=== PATIENT | female | born 1950 | race Caucasian/White ===

== ENCOUNTER 2024-09-04 13:01 | Inpatient (IN) | payer MEDICARE ==
[~2024-09-04] VITALS: Ht 162.6 cm; Wt 123.2 kg
[2024-09-04] VITALS (9 sets, daily range): BP systolic 126–155; BP diastolic 61–77; PULSE 82–98; RESP 17–30; TEMP 97.9–99.6; O2SAT 86–94
[~2024-09-04 13:01] MED LIST: FLOMAX0.4 MG PO; IRBESARTAN150 MG PO; LEVOTHYROXINE50 MCG PO; OXYBUTYNIN CHLOR5 MG PO; PHENAZOPYRIDIN100 MG PO; SIMVASTATIN40 MG PO
[2024-09-04 13:52] LABS: BASOPHILS % 0.2 % (0.0-1.0); EOSINOPHILS % 0.4 % (0.0-6.0); HEMATOCRIT 38.7 % (34.2-44.1); HEMOGLOBIN 11.8 g/dL (12.0-16.0); LYMPHOCYTES # (AUTO) 1.4 (1.0-3.2); LYMPHOCYTES % 29.7 % (18.0-39.1); MEAN CORPUSCULAR HEMOGLOBIN 30.3 pg (28-32); MEAN CORPUSCULAR HGB CONC 30.5 g/dL (31-35); MEAN CORPUSCULAR VOLUME 99.5 fL (81-99); MONOCYTES # (AUTO) 0.5 (0.2-0.8); MONOCYTES % 10.1 % (4.4-11.3); NEUTROPHILS # (AUTO) 2.8 (2.1-6.9); NEUTROPHILS % 59.4 % (38.7-80.0); PLATELET COUNT 189 x10e3/uL (140-360); RED BLOOD COUNT 3.89 x10e6/uL (3.6-5.1); WHITE BLOOD COUNT 4.74 x10e3/uL (4.8-10.8)
[2024-09-04] MEDS: ALBUTEROL/IPRATROPIUM 3 ML NEB NEB ONE (13:55)
[2024-09-04 14:21] LABS: INR 0.98; PROTHROMBIN TIME 13.6 seconds (11.9-14.5)
[2024-09-04] MEDS: METHYLPREDNISOLONE SOD SUCC 125 MG/2ML VIAL IV STA (14:21)
[2024-09-04 14:22] LABS: PARTIAL THROMBOPLASTIN TIME 37.7 seconds (23.8-35.5)
[2024-09-04] MEDS: SODIUM CHLORIDE 0.9% 500ML 500 ML IV ONE ×2 (14:22→16:50)
[2024-09-04 14:31] LABS: ALBUMIN 3.1 g/dL (3.5-5.0); ALBUMIN/GLOBULIN RATIO 0.9 (0.8-2.0); ANION GAP 14.3 mmol/L (8-16); BILIRUBIN,TOTAL 0.3 mg/dL (0.2-1.2); CALCIUM 9.1 mg/dL (8.4-10.2); CREATININE, SERUM 0.63 mg/dL (0.57-1.11); MAGNESIUM 1.9 MG/DL (1.3-2.1); POTASSIUM 4.3 mmol/L (3.5-5.1); TOTAL PROTEIN 6.6 g/dL (6.5-8.1)
[2024-09-04 14:37] LABS: TROPONIN I 0.003 ng/mL (0-0.300)
[2024-09-04] MEDS: Doxycycline IV 100 MG in SODIUM CHLORIDE 0.9% 100 ML IV SCH (16:24)
[2024-09-04 17:22] LABS: ABG PCO2 51 mmHg (35-45); ABG PH 7.39 (7.35-7.45)
[2024-09-04 17:23] LABS: ABG HCO3 31 mmol/L (22-26); ABG PO2 74 mmHg (80-105); ABG TCO2 32
[2024-09-04] MEDS ORDERED: IOPAMIDOL 370 MG/ML 100 ML INFUS..BTL INJ ONE (17:25)
[2024-09-04 18:15] LABS: INFLUENZA A AG NEGATIVE (NEGATIVE); INFLUENZA B AG NEGATIVE (NEGATIVE)
[2024-09-04 18:16] LABS: CORONAVIRUS COVID-19 AG NEGATIVE (NEGATIVE)
[2024-09-04] MEDS: ALBUTEROL/IPRATROPIUM 3 ML NEB NEB SCH (19:19)
[2024-09-04] MEDS: ACETAMINOPHEN 325 MG TAB PO PRN (19:29)
[2024-09-04 20:29] LABS: BILIRUBIN,URINE NEGATIVE (NEGATIVE); CLARITY,URINE SL CLOUDY (CLEAR); COLOR,URINE YELLOW (YELLOW); GLUCOSE, URINE NEGATIVE (NEGATIVE); KETONES,URINE 2+ (NEGATIVE); LEUKOCYTE ESTERASE ,URINE NEGATIVE (NEGATIVE); NITRITE,URINE NEGATIVE (NEGATIVE); PH,URINE 6 (5 - 7); PROTEIN,URINE DIPSTICK 1+ (NEGATIVE); URINE UROBILINOGEN 0.2 mg/dL (0.2 - 1)
[2024-09-04 20:42] LABS: BACTERIA,URINE RARE /HPF
[2024-09-04] MEDS ORDERED: SIMVASTATIN 40 MG TAB PO SCH (21:00)
[2024-09-04] MEDS ORDERED: ZOLPIDEM TARTRATE 5 MG TAB PO PRN (21:00)
[2024-09-04] MEDS ORDERED: COMBIGAN EYE DRO5 ML OP (21:08)
[2024-09-04] MEDS ORDERED: BREO ELLIPTA 11 EACH INH (21:08)
[2024-09-04] MEDS ORDERED: LASIX20 MG PO (21:08)
[2024-09-04] MEDS ORDERED: BRIMONIDINE/TIMOLOL (OPTH SOLN 5 ML DRPETTE OP SCH (23:53)
[2024-09-04] MEDS: BRIMONIDINE/TIMOLOL (OPTH SOLN 5 ML DRPETTE OP SCH (23:56)
[2024-09-05] VITALS (42 sets, daily range): BP systolic 112–172; BP diastolic 61–131; PULSE 54–107; RESP 16–27; TEMP 98–99.4; O2SAT 33–99
[2024-09-05] MEDS: LEVOTHYROXINE SODIUM 75 MCG TAB PO SCH (00:07)
[2024-09-05 01:23] LABS: TROPONIN I 0.002 ng/mL (0-0.300)
[2024-09-05] MEDS ORDERED: LEVOTHYROXINE SODIUM 75 MCG TAB PO SCH (06:00)
[2024-09-05 06:43] LABS: HEMOGLOBIN 11.5 g/dL (12.0-16.0); LYMPHOCYTES # (AUTO) 0.6 (1.0-3.2); LYMPHOCYTES % 17.9 % (18.0-39.1); MEAN CORPUSCULAR HEMOGLOBIN 30.6 pg (28-32); MEAN CORPUSCULAR HGB CONC 31.1 g/dL (31-35); MEAN CORPUSCULAR VOLUME 98.4 fL (81-99); MONOCYTES # (AUTO) 0.3 (0.2-0.8); MONOCYTES % 9.5 % (4.4-11.3); NEUTROPHILS # (AUTO) 2.4 (2.1-6.9); PLATELET COUNT 186 x10e3/uL (140-360); RED BLOOD COUNT 3.76 x10e6/uL (3.6-5.1); WHITE BLOOD COUNT 3.36 x10e3/uL (4.8-10.8)
[2024-09-05 07:06] LABS: ALBUMIN 3.1 g/dL (3.5-5.0); ALBUMIN/GLOBULIN RATIO 0.9 (0.8-2.0); ANION GAP 16.1 mmol/L (8-16); BILIRUBIN,TOTAL 0.2 mg/dL (0.2-1.2); CREATININE, SERUM 0.61 mg/dL (0.57-1.11); POTASSIUM 4.1 mmol/L (3.5-5.1); TOTAL PROTEIN 6.7 g/dL (6.5-8.1)
[2024-09-05 07:33] LABS: TROPONIN I 0.004 ng/mL (0-0.300)
[2024-09-05] MEDS ORDERED: OXYBUTYNIN CHLORIDE 5 MG TAB PO SCH (09:00)
[2024-09-05] MEDS: PHENAZOPYRIDINE HCL 100 MG TAB PO SCH (09:00)
[2024-09-05] MEDS: TAMSULOSIN HCL 0.4 MG CAP PO SCH (09:22)
[2024-09-05] MEDS: SIMVASTATIN 40 MG TAB PO SCH (09:23)
[2024-09-05] MEDS: FUROSEMIDE 20 MG TAB PO SCH ×2 (09:23→19:30)
[2024-09-05] MEDS: GUAIFENESIN/CODEINE 5 ML LIQD PO PRN (17:59)
[2024-09-05] MEDS: DILTIAZEM HCL 5 MG/ML 5 ML VIAL IV ONE (19:31)
[2024-09-05] MEDS: GUAIFENESIN 600MG/DEXTROMETHORPHAN 30MG TABSR PO SCH (19:31)
[2024-09-05] MEDS: BENZONATATE 100 MG CAP PO PRN (19:32)
[2024-09-05] MEDS: AMLODIPINE BESYLATE 5 MG TAB PO SCH (20:13)
[2024-09-05] MEDS: LOSARTAN POTASSIUM 100 MG TAB PO SCH (20:13)
[2024-09-05] MEDS ORDERED: IRBESARTAN 150 MG TAB PO SCH (21:00)
[2024-09-06] VITALS (36 sets, daily range): BP systolic 113–163; BP diastolic 62–110; PULSE 69–97; RESP 15–26; TEMP 98–98.4; O2SAT 88–100
[2024-09-06] MEDS: ALBUTEROL/IPRATROPIUM 3 ML NEB NEB PRN (11:30)
[2024-09-07] VITALS (14 sets, daily range): BP systolic 139–167; BP diastolic 71–85; PULSE 66–95; RESP 17–27; TEMP 98.2–98.4; O2SAT 77–96
[2024-09-07 06:52] LABS: BASOPHILS % 0.2 % (0.0-1.0); EOSINOPHILS % 0.4 % (0.0-6.0); HEMATOCRIT 37.8 % (34.2-44.1); HEMOGLOBIN 11.4 g/dL (12.0-16.0); LYMPHOCYTES # (AUTO) 1.9 (1.0-3.2); LYMPHOCYTES % 37.4 % (18.0-39.1); MEAN CORPUSCULAR HEMOGLOBIN 30.5 pg (28-32); MEAN CORPUSCULAR HGB CONC 30.2 g/dL (31-35); MEAN CORPUSCULAR VOLUME 101.1 fL (81-99); MONOCYTES # (AUTO) 0.6 (0.2-0.8); MONOCYTES % 12.5 % (4.4-11.3); NEUTROPHILS # (AUTO) 2.5 (2.1-6.9); NEUTROPHILS % 48.5 % (38.7-80.0); PLATELET COUNT 209 x10e3/uL (140-360); RED BLOOD COUNT 3.74 x10e6/uL (3.6-5.1); RED CELL DISTRIBUTION WIDTH 12.9 % (11.7-14.4); WHITE BLOOD COUNT 5.05 x10e3/uL (4.8-10.8)
[2024-09-07 07:16] LABS: ANION GAP 14.1 mmol/L (8-16); CALCIUM 8.9 mg/dL (8.4-10.2); CREATININE, SERUM 0.55 mg/dL (0.57-1.11); POTASSIUM 4.1 mmol/L (3.5-5.1)
[2024-09-07] MEDS: AMLODIPINE BESYLATE 5 MG TAB PO SCH (08:46)
[2024-09-07] MEDS ORDERED: VENTOLIN HFA18 GM INH (13:35)
[2024-09-07] MEDS ORDERED: NORVASC5 MG PO (13:35)
[2024-09-07] MEDS ORDERED: MUCINEX DM ER1 EACH PO (13:35)
[2024-09-07] MEDS ORDERED: DOXYCYCLINE MO100 M1 PO (13:35)
[2024-09-07] MEDS ORDERED: BENZONATATE100 MG PO (13:35)
[2024-09-07] MEDS ORDERED: PREDNISONE20 MG PO (13:37)
[2024-09-07 15:08] LABS: BAND NEUTROPHILS % (MANUAL) 2 %; LYMPHOCYTES % (MANUAL) 17 % (19-48); MONOCYTES % (MANUAL) 11 % (3.4-9.0); NEUTROPHILS % (MANUAL) 58 % (40-74); REACTIVE LYMPHOCYTES 12
[2024-09-07 15:09] LABS: PLATELET ESTIMATE ADEQUATE; PLATELET MORPHOLOGY COMMENT MODERATE LARGE; RBC MORPHOLOGY COMMENT NORMAL
[2024-09-07 15:10] LABS: HYPOCHROMASIA SLIGHT
[2024-09-08 10:26] LABS: ABG HCO3 31 mmol/L (22-26); ABG PCO2 51 mmHg (35-45); ABG PH 7.39 (7.35-7.45); ABG PO2 74 mmHg (80-105); ABG TCO2 32
== END 2024-09-07 15:00 | disposition home or self-care (01) | DRG 193 ==
LOC: ER 13:33 → ERHOLD 17:37 → ICU 20:00
PROVIDERS: ADMIT Internal Medicine; ATTEND Internal Medicine
DX: J18.9 Pneumonia, unspecified organism (principal); I50.33 Acute on chronic diastolic (congestive) heart failure; J96.21 Acute and chronic respiratory failure with hypoxia; J44.0 Chronic obstructive pulmonary disease with (acute) lower respiratory infection; J44.1 Chronic obstructive pulmonary disease with (acute) exacerbation; Z68.42 Body mass index [BMI] 45.0-49.9, adult; I11.0 Hypertensive heart disease with heart failure; Z99.81 Dependence on supplemental oxygen; E03.9 Hypothyroidism, unspecified; D64.9 Anemia, unspecified; R59.0 Localized enlarged lymph nodes; Z71.3 Dietary counseling and surveillance; Z11.52 Encounter for screening for COVID-19; Z87.442 Personal history of urinary calculi; Z96.0 Presence of urogenital implants; Z79.899 Other long term (current) drug therapy
CPT/HCPCS: 36415; 71045; 71260; 80048; 80053; 81001; 82550; 82805; 83735; 83880; 84484; 85025; 85610; 85730; 87040; 93005; 93306; 94640; 94799; 99252; 99285; J0696; J2919; J7040; J7050; Q9967